=== PATIENT | male | born 1945 | race Caucasian/White ===

== ENCOUNTER 2019-10-21 15:05 | Emergency (ER) | payer MEDICARE, BC, SELFPAY ==
[2019-10-21] VITALS (40 sets, daily range): BP systolic 98–144; BP diastolic 52–66; PULSE 50–66; RESP 7–23; TEMP 36.6; O2SAT 94–99
--- NOTE | 2019-10-21 15:06 | ED.GENADUL_ITS ---
Discharge Plan Disposition Patient Disposition: HOME Condition: Stable Discharge Details Chief Complaint: Chest Pain Clinical Impression: Chest tightness Primary Care Provider: GANGA HAQ ED Provider: Oscar Alegre Home Meds and New Rx's Prescriptions: No Action losartan 100 mg tablet 100 mg PO DAILY RF: 0 atenolol 50 mg tablet 50 mg PO BID RF: 0 rosuvastatin 10 mg tablet 10 mg PO DAILY RF: 0 Discharge Instructions Instructions: Chest Pain (ED) Additional Instructions: At this time your work-up is unremarkable for emergent process and you have remained asymptomatic during your ER visit. At this time you will be discharged home however have been encouraged to return to the ER for new or evolving symptoms, otherwise contact your primary care provider on Wednesday for prompt outpatient reevaluation. Discharge Data Discharge Date/Time-TO BE ENTERED AT DEPARTURE: 10/21/19 19:40 Medical Decision Making <JESSICA Celeste - Last Filed: 10/22/19 07:54> Patient is a pleasant 74-year-old male presenting today after having a 15-minute episode of chest tightness. He states that he and his and walked approximately half a mile prior to onset of symptoms. States that he was wear ing a cloth mask made by his to help prevent COVID 19. Patient reports that this week he has been rather sedentary compared to his typical but normally he goes to the gym multiple times a day and rides a bike. He has never had an episode like this when physically exerting himself historically. States his past medical history is pertinent for hypertension but otherwise, healthy individual. He is on atenolol which he did take this morning. He denies any chest pain. No shortness of breath. Denies any radiating pain, back pain. Did not have any palpitations. No known personal cardiac history. States that symptoms resolved 15 minutes after onset while sedentary in the car. On exam, patient is resting comfortably. He is noted be slightly hypertensive at 144/63. His lungs are clear. Normal cardiac exam. He does have lower extremity edema the patient reports that this is chronic and unchanged. No calf tenderness. EKG was obtained. This is reviewed by Dr. Leung. Patient is in a normal sinus rhythm with a rate of 60. Of note, the initial EKG did show abnormalities this appeared more motion artifact. The repeat does not show any evidence of ST elevation or other acute ischemic changes. At the end of my shift, care was transitioned to Oscar Alegre PA-C with labs and imaging pending. <JESSICA Farnsworth - Last Filed: 10/21/19 19:32> This is a pleasant 74-year-old gentleman who was signed out to me at shift change. He had left sided chest heaviness after putting a respiratory mask on and walking. Cardiac work-up in process. Upon shift change patient is resting comfortably in the room a, asymptomatic. Awaiting laboratory values and x-ray. Laboratory values are essentially unremarkable, initial troponin is less than 0.05 X-ray of his chest was read by virtual radiology as mild opacities in the medial aspect of both bases which may resent atelectasis or pneumonia. Patient is without cough, hypoxia, or elevated white count. Clinically very low suspicion of pneumonia. Patient remains asymptomatic. Upon my reevaluation he is resting comfortably. We discussed his initial benign work-up. We discussed a 3-hour repeat troponin and observation for a rapid cardiac rule out. Patient is agreeable to this plan. Repeat troponin is 0.05, still below our critical value. Patient remains asymptomatic. Repeat troponin performed at 1911 reviewed and interpreted by Dr. Leung. Sinus rhythm, ventricular rate of 62. Poor R wave progression. No acute ST elevation or depression segments. No dynamic changes when compared to initial EKG At this time patient has been observed in the ER for over 3 hours and has remained asymptomatic. Work-up in the ER does not reveal any emergent process. We discussed her options, patient is comfortable being discharged home. He believes his symptoms were secondary to wearing the mask, feeling claustrophobic and becoming anxious. We discussed the importance of returning to the ER for new or evolving symptoms, otherwise contacting his primary care provider on Wednesday for prompt outpatient reevaluation. Patient is agreeable to this plan and has no additional questions or concerns Imaging Data Radiologic Study: Attestation: I personally reviewed and interpreted this imaging study as follows: Imaging: X-Ray My impression: I initially read as negative, virtual radiology read as mild opacities in the medial aspect of both bases, may represent atelectasis or pneumonia. Very small suspicion for pneumonia given his clinical presentation. Lab Data Lab results reviewed: Yes I reviewed the patient's lab results. Lab results narrative: Laboratory Tests Range/Units 10/21/19 10/21/19 10/21/19 15:20 15:20 15:20 WBC (4.4-10.8) k/cumm 8.87 RBC (4.50-6.00) m/cumm 5.43 Hgb (13.5-17.5) g/dL 16.7 Hct (40.0-50.0) % 48.8 MCV (80-95) fL 89.9 MCH (27.0-33.0) pg 30.8 MCHC (32.0-36.0) g/dL 34.2 RDW (11.8-14.1) % 13.2 Plt Count (130-400) x1000/uL 254 MPV (8.0-11.0) fL 8.9 Immature Gran % % 0.3 Neutrophils % 63.9 Lymphocytes % 23.1 Monocytes % 11.0 Eosinophils % 1.4 Basophils % 0.3 Absolute Neutrophils (1.2-6.7) k/cumm 5.66 Absolute Lymphocytes (1.2-3.4) k/cumm 2.05 Absolute Monocytes (0.11-0.7) k/cumm 0.98 H Absolute Eosinophils (0.0-0.7) k/cumm 0.12 Absolute Basophils (0.0-0.2) k/cumm 0.03 PT (9.3-11.0) sec 11.0 INR (0.9-1.1) 1.1 APTT (21.0-31.4) sec 23.6 Sodium (136-145) mmol/L 141 Potassium (3.5-5.1) mmol/L 3.9 Chloride (98-107) mmol/L 103 Carbon Dioxide (21.0-32.0) mmol/L 26.5 Anion Gap (3-11) mmol/L 11.5 H BUN (7-18) mg/dL 20 H Creatinine (0.70-1.30) mg/dL 1.14 Estimated GFR/1.73 m2 (mL/min/1.73m2) >= 60.00 Glucose (74-106) mg/dL 114 H Calcium (8.5-10.1) mg/dL 8.7 Magnesium (1.8-2.4) mg/dL 1.8 Total Bilirubin (0.2-1.0) mg/dL 0.5 AST (15-37) U/L 32 ALT (16-63) U/L 47 Alkaline Phosphatase (46-116) U/L 99 Troponin I (<0.06) ng/Ml < 0.05 NT-Pro-B Natriuret Pep (<300) pg/mL 77 Total Protein (6.4-8.2) g/dL 7.3 Albumin (3.4-5.0) g/dL 3.6 Range/Units 10/21/19 18:07 WBC (4.4-10.8) k/cumm RBC (4.50-6.00) m/cumm Hgb (13.5-17.5) g/dL Hct (40.0-50.0) % MCV (80-95) fL MCH (27.0-33.0) pg MCHC (32.0-36.0) g/dL RDW (11.8-14.1) % Plt Count (130-400) x1000/uL MPV (8.0-11.0) fL Immature Gran % % Neutrophils % Lymphocytes % Monocytes % Eosinophils % Basophils % Absolute Neutrophils (1.2-6.7) k/cumm Absolute Lymphocytes (1.2-3.4) k/cumm Absolute Monocytes (0.11-0.7) k/cumm Absolute Eosinophils (0.0-0.7) k/cumm Absolute Basophils (0.0-0.2) k/cumm PT (9.3-11.0) sec INR (0.9-1.1) APTT (21.0-31.4) sec Sodium (136-145) mmol/L Potassium (3.5-5.1) mmol/L Chloride (98-107) mmol/L Carbon Dioxide (21.0-32.0) mmol/L Anion Gap (3-11) mmol/L BUN (7-18) mg/dL Creatinine (0.70-1.30) mg/dL Estimated GFR/1.73 m2 (mL/min/1.73m2) Glucose (74-106) mg/dL Calcium (8.5-10.1) mg/dL Magnesium (1.8-2.4) mg/dL Total Bilirubin (0.2-1.0) mg/dL AST (15-37) U/L ALT (16-63) U/L Alkaline Phosphatase (46-116) U/L Troponin I (<0.06) ng/Ml 0.05 NT-Pro-B Natriuret Pep (<300) pg/mL Total Protein (6.4-8.2) g/dL Albumin (3.4-5.0) g/dL HPI <JESSICA Celeste - Last Filed: 10/22/19 07:54> General Mode of arrival: ambulatory . Date/Time Provider Initiated Documentation: 10/21/19 15:06 . Limitations to Documentation: no limitations . Information obtained by: patient and RN notes reviewed . History of Present Illness 74 year old M presents to the emergency department with the chief complaint of chest tightness, described as moderate, Quality is described as other (tight), and is localized to the chest. Patient reports no radiation. Patient started experiencing this minute(s) and it has been now resolved. Immobilization improves symptom(s), Movement worsens symptoms (came on when walking with mask on) . Patient notes no other symptoms.. Patient did receive the following treatments prior to arrival, none Related Data Home Medications Medication Instructions Recorded Confirmed atenolol 50 mg PO BID 10/21/19 10/21/19 losartan 100 mg PO DAILY 10/21/19 10/21/19 rosuvastatin 10 mg PO DAILY 10/21/19 10/21/19 Allergies Allergy/AdvReac Type Severity Reaction Status Date / Time No Known Allergies Allergy Unverified 10/21/19 15:29 Review of Systems <JESSICA Celeste - Last Filed: 10/22/19 07:54> Constitutional Constitutional: Reports as per HPI, Denies chills, Denies fever(s), Denies headache(s), Denies lethargy and Denies poor appetite Eyes Eyes: Denies change in vision ENT Ears, Nose, Mouth, and Throat: Denies dizziness and Denies headache(s) Cardiovascular Cardiovascular: Reports as per HPI, Reports chest pain (chest tightness), Denies chest pain at rest, Reports chest pain with activity (came on when ambulating, now resolved after sitting x 15 min), Denies diaphoresis, Denies rapid heart rate, Reports leg edema (chronic BLE edema, no change), Denies lightheadedness, Denies radiating jaw, neck or arm pain, Denies palpitations, Denies dyspnea and Denies dyspnea on exertion Respiratory Respiratory: Reports as per HPI, Denies chest congestion, Denies cough, Denies pain on inspiration, Denies pain with cough, Denies dyspnea, Denies dyspnea on exertion and Denies wheezing Gastrointestinal Gastrointestinal: Reports as per HPI, Denies abdominal pain, Denies diarrhea, Denies nausea and Denies vomiting Genitourinary Genitourinary: Denies system reviewed and no additional complaints, except as documented (denies change in urinary habits) Musculoskeletal Musculoskeletal: Reports as per HPI and Denies back pain Integumentary/Breasts Skin/Breast: Reports as per HPI and Denies rash Neurologic Neurologic: Reports as per HPI, Denies dizziness and Denies headache(s) Endocrine Endocrine: Denies palpitations Allergic/Immunologic Allergic/Immunologic: Denies wheezing PFSH <JESSICA Celeste - Last Filed: 10/22/19 07:54> Social History Smoking/Tobacco Use Status: Former Tobacco Use Tobacco: How many years used: 3 Substance use type: does not use Do you feel safe at home: Yes Do you feel safe in your relationship?: Yes Exam <JESSICA Celeste - Last Filed: 10/22/19 07:54> Const General: cooperative, healthy appearing, comfortable, no acute distress and well developed Nutritional Appearance: well nourished and overweight Orientation: alert, awake and oriented x3 HENMT Head: normal to inspection Ears: hearing grossly normal bilaterally Mouth: mucous membranes dry (appears dry) Chest Chest: normal inspection of the chest, normal palpation of entire chest wall and no crepitus Resp Effort & Inspection: normal respiratory effort, able to speak in complete sentences and no respiratory distress Auscultation: clear to auscultation bilaterally, no rales, no rhonchi and no wheezes Cardio Rate: regular rate Rhythm: regular rhythm Heart Sounds: S1 normal and S2 normal GI Inspection: normal to inspection, no edema and non-distended Palpation: soft, no hepatosplenomegaly, not firm, no guarding, not rigid and nontender Auscultation: normal bowel sounds Back/Spine/Pelvis Back: no CVA tenderness Thoracic/Lumbar Spine: thoracic and lumbar spine normal to inspection Skin General skin exam: no rashes or lesions noted Trauma: no lacerations or abrasions Neuro General: patient alert, patient awake and patient oriented x3 Cognition: normal cognition Speech: speech normal Gait: normal gait Extrem General: normal to inspection, capillary refill normal, no calf tenderness, normal gait and edema Laterality: bilateral (1+ edema BLE, no calf tenderness) Psych Appearance: grossly normal and well kempt Mental Status: mental status grossly normal Speech and Movement: speech and movement normal <JESSICA Farnsworth - Last Filed: 10/21/19 19:32> Const General: cooperative, healthy appearing, comfortable and no acute distress Orientation: alert and awake HENMT Head: normal to inspection, normocephalic and atraumatic Mouth: moist mucous membranes Eyes Conjunctivae: conjunctivae normal Neck Neck: normal visual inspection, trachea midline and supple Resp Effort & Inspection: normal respiratory effort and able to speak in complete sentences Auscultation: clear to auscultation bilaterally Cardio Rate: regular rate Rhythm: regular rhythm Skin General skin exam: no rashes or lesions noted Neuro General: patient alert, patient awake, moves all extremities and no focal motor deficits Sensory Exam: no sensory deficits noted Psych Appearance: grossly normal Mental Status: mental status grossly normal Sign Out <JESSICA Celeste - Last Filed: 10/22/19 07:54> Sign Out Data: Sign Out Comment: Care transition to Mohsen Alegre PA-C with labs and imaging pending. Last updated by Eun Wheeler PA at 10/21/19 15:45
--- NOTE | 2019-10-21 15:15 | DI.RAD_ITS ---
EXAM: XR CHEST 2V PA LATERAL CLINICAL HISTORY: chest tightness with exertion TECHNIQUE: 2D digital imaging was performed. COMPARISON: No exams were available for comparison FINDINGS: MEDIASTINUM: Normal. HEART: Normal. PULMONARY VASCULATURE: Normal. LUNGS: Clear. PLEURAL SPACE: No pleural effusion or pneumothorax. BONE:Age appropriate degenerative changes. OTHER FINDINGS:Normal. IMPRESSION: No acute pulmonary findings. DATA REPOSITORY: RADIATION DOSE DELIVERED:
[2019-10-21 15:29] LABS: Abs Immature Grans 0.03 k/cumm (0.0-0.09); Absolute Basophil Count 0.03 k/cumm (0.0-0.2); Absolute Eosinophil Count 0.12 k/cumm (0.0-0.7); Absolute Lymphocyte Count 2.05 k/cumm (1.2-3.4); Absolute Monocyte Count 0.98 k/cumm (0.11-0.7); Absolute Neutrophil Count 5.66 k/cumm (1.2-6.7); Basophils % 0.3; Eosinophils % 1.4; HCT 48.8 % (40.0-50.0); HGB 16.7 g/dL (13.5-17.5); Immature Grans % 0.3 %; Lymphocytes % 23.1; Mean Corp. HGB Concentration 34.2 g/dL (32.0-36.0); Mean Corpuscular Hemoglobin 30.8 pg (27.0-33.0); Mean Corpuscular Volume 89.9 fL (80-95); Mean Platelet Volume 8.9 fL (8.0-11.0); Neutrophils % 63.9; Platelet Count 254 x1000/uL (130-400); RBC 5.43 m/cumm (4.50-6.00); RBC Distribution Width 13.2 % (11.8-14.1); White Blood Cell Count 8.87 k/cumm (4.4-10.8)
[2019-10-21] MEDS: Aspirin 81 MG CHEW 324 MG CH (15:29)
[2019-10-21 15:46] LABS: INR 1.1 (0.9-1.1); PTT Activated 23.6 sec (21.0-31.4)
[2019-10-21 15:54] LABS: ALT 47 U/L (16-63); AST 32 U/L (15-37); Albumin 3.6 g/dL (3.4-5.0); Alkaline Phosphatase 99 U/L (46-116); Anion Gap 11.5 mmol/L (3-11); BUN 20 mg/dL (7-18); Bilirubin, Total 0.5 mg/dL (0.2-1.0); CO2 26.5 mmol/L (21.0-32.0); CREATININE 1.14 mg/dL (0.70-1.30); Calcium 8.7 mg/dL (8.5-10.1); Chloride 103 mmol/L (98-107); Glucose 114 mg/dL (74-106); Magnesium 1.8 mg/dL (1.8-2.4); NT-proBNP 77 pg/mL (<300); Potassium 3.9 mmol/L (3.5-5.1); Sodium 141 mmol/L (136-145); Total Protein 7.3 g/dL (6.4-8.2)
[2019-10-21 15:56] LABS: Troponin I < 0.05 ng/Ml (<0.06)
--- NOTE | 2019-10-21 16:30 | DI.VRAD_ITS ---
PROCEDURE INFORMATION: Exam: XR Chest, 2 Views Exam date and time: 10/21/2019 4:19 PM Age: 74 years old Clinical indication: Other: Chest tightness, w/ exertion TECHNIQUE: Imaging protocol: XR of the chest Views: 2 views. COMPARISON: No relevant prior studies available. FINDINGS: Lungs: Mild opacities in the medial aspect of the both bases may represent atelectasis or pneumonia. Pleural space: Unremarkable. No pleural effusion. No pneumothorax. Heart/Mediastinum: Unremarkable. No cardiomegaly. Bones/joints: Unremarkable. IMPRESSION: Mild opacities in the medial aspect of the both bases may represent atelectasis or pneumonia. Dictated and Authenticated by: Adonis Elliott MD. Ordering:LATASHA Haq MD
[2019-10-21 18:30] LABS: Troponin I 0.05 ng/Ml (<0.06)
== END 2019-10-21 19:40 | disposition home or self-care (01) ==
PROVIDERS: Physician Assistant; Emergency Provider Physician Assistant; PCP Registered Nurse
DX: R07.89 Other chest pain (principal); I10 Essential (primary) hypertension
CPT/HCPCS: 80053; 93005; 99285; 71046; 83735; 83880; 84484; 85025; 85610; 85730; 93010; 99284

== ENCOUNTER → 2020-05-20 10:59 | Outpatient (BNVA) | payer MEDICARE, BC, SELFPAY | PROVIDERS: PCP Registered Nurse; Referring Provider Registered Nurse; Visit Provider Surgery | DX: R19.5 Other fecal abnormalities (principal); I10 Essential (primary) hypertension | CPT/HCPCS: 99202; 99213 ==

== ENCOUNTER 2020-06-04 07:35 | Outpatient (CLI) | payer MEDICARE, BC, SELFPAY ==
[2020-06-05 17:52] LABS: SARS-CoV-2 RNA Not Detected (NotDetected); SARS-CoV-2 RNA Source Nasal/Nares
== END 2020-06-04 07:55 ==
PROVIDERS: PCP Registered Nurse; Visit Provider Surgery
DX: Z01.818 Encounter for other preprocedural examination (principal)
CPT/HCPCS: U0003

== ENCOUNTER 2020-06-07 07:44 | Day surgery (SDC) | payer MEDICARE, BC, SELFPAY ==
[2020-06-07 07:55] VITALS: BP 154/77; PULSE 58; RESP 16; TEMP 36.2; O2SAT 99
[2020-06-07] MEDS: Lactated Ringers 1,000 ML 80 ML IV (08:15)
--- NOTE | 2020-06-07 08:54 | W.PM.DSUDISC ---
Discharge Plan Disposition Patient Disposition: HOME Condition: Good Discharge Details Reason For Visit: Colonoscopy Attending Provider: Susie Hendrix Primary Care Provider: GANGA HAQ Home Meds and New Rx's Prescriptions: Continued aspirin [Adult Aspirin Regimen] 81 mg tablet,delayed release (DR/EC) 81 mg PO DAILY RF: 0 cholecalciferol (vitamin D3) 25 mcg (1,000 unit) capsule 25 mcg PO DAILY RF: 0 ascorbate calcium (vitamin C) 500 mg tablet 500 mg PO DAILY RF: 0 losartan 100 mg tablet 100 mg PO DAILY RF: 0 atenolol 50 mg tablet 50 mg PO BID RF: 0 rosuvastatin 10 mg tablet 10 mg PO DAILY RF: 0 Discontinued bisacodyl [Dulcolax (bisacodyl)] 5 mg tablet,delayed release (DR/EC) 5 mg PO ONCE Qty: 4 RF: 0 polyethylene glycol 3350 17 gram/dose powder 17 g PO ONCE Qty: 238 RF: 0 Discharge Instructions Additional Instructions: Findings: Four small polyps were removed. My office will contact you with biopsy results. Follow up: Plan for a colonoscopy in 3-5 years depending on biopsy results. Please call if you develop: fevers >101.5 Nausea or Vomiting Abdominal pain that is not transient DAY SURGERY UNIT POST COLONOSCOPY INSTRUCTIONS 1. Because there will be medication in your system for the next 24 hours, you may feel a little sleepy. Your coordination will be affected. Therefore: a. Do not drive or operate dangerous equipment for 24 hours. b. Do not drink alcohol beverages for 24 hours (not even beer). c. Plan to go home and rest for the day. 2. Generally there are no restrictions on your activity after a day or so has gone by, but you may feel a bit fatigued for a few days. 3 After you arrive home you may have a light meal and return to a normal diet as you can tolerate it without feeling sick to your stomach. 4. After surgery, you may feel pain or discomfort. This should be only transient, but if it persists please contact your doctor. 5. If there are any questions regarding the findings of your procedure, please feel free to contact your doctor. 6. If you are unable to contact your doctor with a problem, contact the hospital at [phone]. 7. Continue all your regular medications unless directed otherwise. I understand the above instructions and have no questions. Signature of Patient or Responsible Adult Escort Date/Time Name of Responsible Adult Escort Signature of Nurse Date/Time Activity:: Activity as Tolerated Diet:: As Tolerated Discharge Orders Discharge Orders: Discharge Order (Routine); Ordered 06/07/20 Ordered By: Susie Hendrix DS: Diagnosis Discharge Diagnosis (1) Colon polyps: Status: Acute (2) Diverticulosis: Status: Acute
--- NOTE | 2020-06-07 08:55 | W.COLOREPORT ---
Date of service: 06/07/20 Time of Service: 10:46 Colonoscopy Report Date of procedure: 06/07/20 Pre-op diagnosis general: Positive Cologuard Post-op diagnosis procedure note: other (Colon polyps, diverticulosis) Procedure: Colonoscopy with cold forceps polypectomy Surgeon: Susie Hendrix Anesthesia proc note operative: MAC Indications: This 75 year man presents for evaluation of a positive Cologuard test. He has no symptoms or FH colon cancer. No prior colonoscopy. Procedure Description: The patient was placed in the left Sánchez position. Propofol was titrated to sedation. Digital rectal examination revealed no abnormalities. The scope was advanced to the cecum without difficulty. The ileocecal valve and appendiceal orifice were clearly identified. The prep was good. The scope was slowly withdrawn over the course of greater than 6 minutes with no abnormalities seen in the ascending colon. At the hepatic flexure, two small polyps were removed with the cold forceps and sent together in the same container. A diminuitive polyp was removed from the transverse colon. The descending and sigmoid colon were normal. A diminuitive polyp was removed from the rectum. The patient tolerated the procedure well and was stable to recovery. Plan for colonoscopy in 3-5 years depending on biopsy results.
--- NOTE | 2020-06-07 10:13 | BOWEL_PTH ---
PATIENT: Gregory Kent LOC: [facility] U#:[id number] AGE/SX: 75/M ROOM: RE06/07/[address]: Susie Hendrix MD : [id number] BED: DIS: 06/07/2020 SPEC #: [id number] RECD: 06/07/20 12:31 STATUS: SAMARA REQ #: [id number] HONORIO: 06/07/20 10:[address]: Susie Hendrix DEPT: Surgical Specimen RECD BY: Radha Stewart ENTERED: 06/07/20 12:34 SP TYPE: Bowel OTHR DR: Riddhi Sorenson Tissues: 1 - BIOPSY BOWEL 2 - BIOPSY BOWEL 3 - BIOPSY BOWEL Procedures: GROSS AND MICRO LEVEL 4 Comments: [id number]
[2020-06-07 11:00] VITALS: BP 130/62; PULSE 51; RESP 16; TEMP 36.2; O2SAT 99
== END 2020-06-07 11:30 | disposition home or self-care (01) ==
PROVIDERS: PCP Registered Nurse; Visit Provider Surgery
PROC: 0DJD8ZZ Inspection of Lower Intestinal Tract, Via Natural or Artificial Opening Endoscopic (ICD-10-PCS; CPT 45378; principal; 2020-06-07 09:45)
DX: Z12.11 Encounter for screening for malignant neoplasm of colon (principal); D12.3 Benign neoplasm of transverse colon; K62.1 Rectal polyp; R19.5 Other fecal abnormalities; K57.30 Diverticulosis of large intestine without perforation or abscess without bleeding
CPT/HCPCS: 45380; 88305; J2001

== ENCOUNTER 2020-12-19 15:54 | Outpatient (REF) | payer MEDICARE, BC, SELFPAY ==
[2020-12-19 20:47] LABS: Hemoglobin A1C 5.5 % (<5.7)
[2020-12-19 20:53] LABS: ALT 38 U/L (16-63); AST 25 U/L (15-37); Albumin 3.4 g/dL (3.4-5.0); Alkaline Phosphatase 91 U/L (46-116); Anion Gap 6.1 mmol/L (3-11); BUN 23 mg/dL (7-18); Bilirubin, Total 0.5 mg/dL (0.2-1.0); CO2 29.9 mmol/L (21.0-32.0); CREATININE 1.2 mg/dL (0.70-1.30); Calcium 8.7 mg/dL (8.5-10.1); Calculated LDL 80 mg/dL (<100); Chloride 109 mmol/L (98-107); Cholesterol 180 mg/dL (<200); Estimated GFR 59.35 (mL/min/1.73m2); Glucose 110 mg/dL (74-106); HDL Cholesterol 38 mg/dL (40-60); Potassium 4.2 mmol/L (3.5-5.1); Sodium 145 mmol/L (136-145); Total Protein 6.3 g/dL (6.4-8.2); Triglyceride 312 mg/dL (<150)
== END 2020-12-19 15:55 | disposition home or self-care (01) ==
LOC: NCHCN 15:54
PROVIDERS: PCP Registered Nurse; Visit Provider Registered Nurse
DX: I10 Essential (primary) hypertension (principal); E78.00 Pure hypercholesterolemia, unspecified; R73.09 Other abnormal glucose
CPT/HCPCS: 80053; 80061; 83036

== ENCOUNTER 2021-11-12 18:52 | Outpatient (REF) | payer MEDICARE, BC, SELFPAY ==
[2021-11-12 15:29] LABS: ALT 56 U/L (16-63); AST 31 U/L (15-37); Albumin 3.6 g/dL (3.4-5.0); Alkaline Phosphatase 100 U/L (46-116); Anion Gap 5.8 mmol/L (3-11); BUN 18 mg/dL (7-18); Bilirubin, Total 0.6 mg/dL (0.2-1.0); CO2 30.2 mmol/L (21.0-32.0); CREATININE 1.3 mg/dL (0.70-1.30); Calcium 8.6 mg/dL (8.5-10.1); Chloride 106 mmol/L (98-107); Estimated GFR 53.96 (mL/min/1.73m2); Glucose 107 mg/dL (74-106); Potassium 4.3 mmol/L (3.5-5.1); Sodium 142 mmol/L (136-145); Total Protein 6.7 g/dL (6.4-8.2)
[2021-11-13 09:48] LABS: Hepatitis C Ab w Rflx HCV PCR Negative (Negative)
== END 2021-11-12 18:53 | disposition home or self-care (01) ==
LOC: NCHCN 18:52
PROVIDERS: PCP Registered Nurse; Visit Provider Registered Nurse
DX: I10 Essential (primary) hypertension (principal); K76.0 Fatty (change of) liver, not elsewhere classified; Z11.59 Encounter for screening for other viral diseases
CPT/HCPCS: 80053; 86803

== ENCOUNTER 2021-11-24 10:09 | Day surgery (SDC) | payer MEDICARE, BC, SELFPAY ==
[2021-11-24] MEDS: Tropicam./Phenyleph. (1/2.5%) 5 ML BTL OD ×3 (10:46→10:57)
[2021-11-24 10:47] VITALS: BP 149/68; PULSE 54; RESP 16; TEMP 36.6; O2SAT 98
--- NOTE | 2021-11-24 10:49 | W.ANESPRE ---
General Info Date of Service Date Performed: 11/24/21 Height: 6 ft 1 in Weight: 116.573 kg Body Mass Index (BMI): 33.9 Surgical Procedure: Operation Date: 11/24/21 12:10 Proposed Procedure Side Surgeon p Cataract Extraction with IOL Implant Right Darrel Knutson MD Meds Allergies and Home Medications Allergies Allergy/AdvReac Type Severity Reaction Status Date / Time No Known Allergies Allergy Unverified 11/24/21 10:34 Home Medication Medication Instructions Recorded atenolol 50 mg tablet 50 mg PO BID 10/21/19 losartan 100 mg tablet 100 mg PO HS 10/21/19 rosuvastatin 10 mg tablet 10 mg PO DAILY 10/21/19 ascorbate calcium (vitamin C) 500 500 mg PO DAILY 05/20/20 mg tablet aspirin 81 mg tablet,delayed 81 mg PO DAILY 05/20/20 release (Adult Aspirin Regimen) cholecalciferol (vitamin D3) 25 25 mcg PO DAILY 05/20/20 mcg (1,000 unit) capsule omeprazole 20 mg capsule,delayed 20 mg PO DAILY 11/20/21 release diphenhydramine HCl 25 mg tablet 25 mg PO TID PRN 11/24/21 Current Visit Medications: Current Medications Generic Name Dose Route Start Last Admin Trade Name Freq PRN Reason Stop Dose Admin Acetaminophen 1,000 mg 11/24/21 06:00 Acetaminophen 500 Mg Tab PO Q4H PRN PRN Miscellaneous Medication 0 ml 11/24/21 06:00 Prednisolone 1%, Moxifloxacin 0.5%, Nepafenac 0.1% 5ml Btl OD DIRECTED [facility] Miscellaneous Medication 0 ml 11/24/21 06:00 11/24/21 10:46 Tropicam./Phenyleph. (1/2.5%) 5 Ml Btl OD 1 drp DIRECTED DIONE Administration Tetracaine HCl 0 ml 11/24/21 06:00 Tetracaine 0.5% 4 Ml Btl OD DIRECTED DIONE PFSH Active Problems Active Problems: Problem Status Onset Code Heme positive stool R19.5 Hypercholesterolemia E78.00 Hypertension I10 Positive colorectal cancer screening using Cologuard test R19.5 Colon polyps K63.5 Diverticulosis K57.90 Serrated adenoma of colon D12.6 Tubular adenoma of colon D12.6 Hyperplastic colon polyp K63.5 Nuclear sclerotic cataract of right eye H25.11 Posterior subcapsular age-related cataract, right eye H25.041 Medical History Medical History (Updated 11/24/21 @ 10:36 by Valorie Lafleur) Hx of chest pain Pt. states came to ER 10/2019 for chest tightness, all tests came back normal, had full work up through [facility]. Pt states he wasn't told to F/U further with cardiology, just his PCP. Pt. stated that it was heart burn related and pain goes away when he takes an antiacid. Hx of gastroesophageal reflux (GERD) Surgical History Surgical History Hx of appendectomy Status post total hip replacement, bilateral Tobacco Smoking/Tobacco Use Status: Former Tobacco Use Alcohol Alcohol Intake: current Alcohol intake frequency: a few times a month Substance Use Substance use: Never Substance use type: does not use Vital Signs and Lab Results Lab Results Blood Type / Crossmatch: No Data to Display Complete Blood Count: No Data to Display Complete Metabolic Panel: Sodium Level 142 mmol/L (136-145) 11/12/21 09:10 11/12/21 Potassium Level 4.3 mmol/L (3.5-5.1) 11/12/21 09:10 11/12/21 Chloride Level 106 mmol/L (98-107) 11/12/21 09:10 11/12/21 Carbon Dioxide Level 30.2 mmol/L (21.0-32.0) 11/12/21 09:10 11/12/21 Blood Urea Nitrogen 18 mg/dL (7-18) 11/12/21 09:10 11/12/21 Creatinine 1.3 mg/dL (0.70-1.30) 11/12/21 09:10 11/12/21 Estimated GFR/1.73 m2 53.96 (mL/min/1.73m2) 11/12/21 09:10 11/12/21 Calcium Level 8.6 mg/dL (8.5-10.1) 11/12/21 09:10 11/12/21 Albumin 3.6 g/dL (3.4-5.0) 11/12/21 09:10 11/12/21 Glucose Level 107 mg/dL (74-106) H 11/12/21 09:10 11/12/21 Liver Function Panel: Alanine Aminotransferase (ALT/SGPT) 56 U/L (16-63) 11/12/21 09:10 11/12/21 Aspartate Amino Transf (AST/SGOT) 31 U/L (15-37) 11/12/21 09:10 11/12/21 Coagulation Panel: No Data to Display Cardiac Panel: No Data to Display Arterial Blood Gas: No Data to Display Venous Blood Gas: No Data to Display Pancreas Panel: No Data to Display Thyroid Panel: No Data to Display Infectious Disease: Hepatitis C Antibody Negative (Negative) 11/12/21 09:10 11/12/21 Blood Cultures: No Data to Display Toxicology Panel: No Data to Display Anesthesia Assessment and Plan Anesthesia History Personal History: No History of Anesthesia Complications Family History: No Family History of Anesthesia Complications Exercise Tolerance Exercise Tolerance: Metabolic Equivalents>4 Pertinent Negatives Pertinent Negatives: No Major Cardiovascular Symptoms or Complaints and No Major Pulmonary Symptoms or Complaints Cardiac & Pulmonary Exam Cardiac Exam: Normal S1/S2 Heart Sounds Pulmonary Exam: Clear Bilateral Breath Sounds Implantable Cardiac Device Does patient have a Pacemaker or an ICD?: No Airway Exam Known Difficult Airway: No Mallampati Class: 2 Mouth Opening: Normal (> 3cm) Thyromental Distance: Greater than 3 cm Neck Range of Motion: Full ROM Neck Circumference: Normal Teeth Condition: Normal Dentition ASA Classification ASA Score: ASA 2 Emergency Case?: No NPO Status NPO Status: NPO Clears >2 hours, Solids >8 hours Anesthesia Plan Resuscitation Status: Full Code Anesthesia Technique: MAC Anesthesia Airway Planned: Natural Airway Monitors Used: Standard Monitors
[2021-11-24 10:51] VITALS: BMI 33.9
[2021-11-24] MEDS: Povidone-Iodine Ophth 30 ML BTL (11:13)
[2021-11-24] MEDS: Tetracaine 0.5% 4 ML BTL OD (11:13)
[2021-11-24] MEDS: Lidocaine 2% Jelly 6 ML SYR (11:15)
[2021-11-24] MEDS: Duovisc Viscoelastic System EACH 1 EACH (11:21)
[2021-11-24] MEDS: Balanced Salt Soln.-PLUS 500 ML BAG (11:21)
[2021-11-24 11:41] VITALS: BP 144/63; PULSE 57; RESP 16; TEMP 36.5; O2SAT 99
--- NOTE | 2021-11-24 11:42 | W.PM.DSUDISC ---
Discharge Plan Disposition Patient Disposition: HOME Condition: Good Discharge Details Attending Provider: Darrel Knutson Primary Care Provider: Riddhi Sorenson Home Meds and New Rx's Prescriptions: No Action aspirin [Adult Aspirin Regimen] 81 mg tablet,delayed release (DR/EC) 81 mg PO DAILY 0RF cholecalciferol (vitamin D3) 25 mcg (1,000 unit) capsule 25 mcg PO DAILY 0RF ascorbate calcium (vitamin C) 500 mg tablet 500 mg PO DAILY 0RF Label Comments: 11/24 pt reports its been a long while omeprazole 20 mg capsule,delayed release(DR/EC) 20 mg PO DAILY 0RF diphenhydramine HCl 25 mg Tablet 25 mg PO TID PRN0RF Label Comments: 11/24 Patient reports OTC generic benadryl losartan 100 mg tablet 100 mg PO HS 0RF Rx Instructions: at bedtime atenolol 50 mg tablet 50 mg PO BID 0RF rosuvastatin 10 mg tablet 10 mg PO DAILY 0RF Label Comments: TAKE 1 TABLET BY MOUTH ONCE DAILY. Discharge Instructions Stand Alone Forms: Post-op Topical Cataract, Inge Niño (DSU) Discharge Orders Discharge Orders: Discharge Order (Routine); Ordered 11/24/21 Ordered By: Darrel Knutson DS: Diagnosis Discharge Diagnosis (1) Nuclear sclerotic cataract of right eye: Status: Resolved (2) Posterior subcapsular age-related cataract, right eye: Status: Resolved
--- NOTE | 2021-11-24 11:43 | W.PM.OP ---
Date of service: 11/24/21 Time of Service: 11:43 Operative Note Operative Note DATE OF PROCEDURE: 11/24/21 PRE-OP DIAGNOSIS: Nuclear/posterior subcapsular cataract, right eye POST-OP DIAGNOSIS: same PROCEDURE: Cataract extraction using phacoemulsification with intraocular lens implant, right eye SURGEON: Darrel Knutson ANESTHESIA TYPE: Local By Surgeon and MAC Refer to Anesthesia Record ESTIMATED BLOOD LOSS: 0 PATHOLOGY: none sent COMPLICATIONS: None Patient was transported to: same day Patient's condition: stable Implants: Ghulam & Ghulam/PAWEL Tecnis [id number] Indications: Progressive visual loss due to cataract, right eye Procedure Description: CATARACT SURGERY OPERATIVE REPORT PREOPERATIVE DIAGNOSIS: 1. Nuclear/posterior subcapsular cataract, right eye POSTOPERATIVE DIAGNOSIS: Same OPERATION: 1. Cataract extraction using phacoemulsification with posterior chamber intraocular lens implant, right eye. IOL: IOL Barge Pilot/Model: Ghulam & Ghulam / PAWEL Tecnis [id number] IOL Power: + 20.5 diopters IOL Serial Number: [id number] Optic Diameter: 6.0mm Haptic/Overall Diameter: 13.0mm PHACO INFO: Anil Concepta Diagnosticsurion Vision System with OZil and Active Fluidics Cumulative Dispersed Energy (CDE): 9.10 seconds SURGEON: Darrel Knutson MD, GEOFFREY ANESTHESIA: Monitored Anesthesia Care (MAC), with local sub-tenon's anesthetic infiltration COMPLICATIONS: None SPECIMENS: None INDICATIONS FOR PROCEDURE: The patient is a 76-year-old male with history of diminished visual acuity in his right eye secondary to the development of nuclear/posterior subcapsular cataract. He was significantly symptomatic that he desired cataract surgery and attempt to improve and maximize his vision. PROCEDURE: The correct surgical eye was identified and marked as the right eye and the pupil was dilated in the preoperative area using mydriatics and cycloplegics. The dilated pupil size was 5.0 mm. He elected to proceed without oral sedation. The patient was brought to the operating room where cardiopulmonary monitoring was instituted and surgical time-out was performed, confirming the correct operative eye and IOL power. Topical anesthesia was administered and ophthalmic povidone-iodine 5% was instilled into the conjunctival fornices. Lidocaine gel was applied to the cornea and the karena-ocular area was prepped with Betadine 10% solution and draped in the usual sterile fashion for intraocular surgery, including an aperture drape. A Tegaderm transparent film dressing was cut in half and used to cover the lashes and lid margins. Care was taken to sequester the lashes and lid margins under the Tegaderm dressing. A lid speculum was placed between the lids of the operative eye and the Anil LuxOR Revalia operating microscope was maneuvered into position. Francheska scissors were then used to make a conjunctival buttonhole approximately 6mm posterior to the limbus in the inferonasal quadrant. Blunt dissection was carried out to expose bare sclera, and a blunt-tipped sub-tenon?s anesthesia cannula was introduced and passed posteriorly along the globe where non-preserved plain lidocaine was injected into posterior sub-Tenon?s space. A sideport knife was used to make a paracentesis port inferotemporally. Intraocular phenylephrine/lidocaine was injected into the anterior chamber. The anterior chamber was filled with viscoelastic. A 2.4mm keratome knife was used to construct a 2-plane near-clear corneal tunnel extending 2.0mm into clear cornea superiortemporally. A flap was raised on the anterior capsule and capsulorhexis forceps were used to complete a continuous curvilinear capsulorhexis of 5.0 mm. Balanced salt solution was then used to perform cortical cleaving hydrodissection and nuclear hydrodelineation until the lens could be freely rotated within the capsular bag. The lens nucleus was then disassembled and removed within the capsular bag and iris plane using phacoemulsification. Residual cortical material was removed using the I/A handpiece. The posterior capsule was carefully polished to remove as much residual lens epithelial cells as safely possible. The capsular bag was then inflated and the anterior chamber deepened with viscoelastic. The lens implant described above was inserted into the capsular bag using the PAWEL [place] Injector. A Kuglen hook was used to dial the IOL into position. Residual viscoelastic was then removed first from posterior to the IOL, then from the anterior chamber using the I/A handpiece. The lens implant was noted to center nicely within the capsular bag. The incisions were stromally hydrated, and the anterior chamber was reformed using BSS. Then 0.5cc of moxifloxacin 1.0mg/ml were injected into the capsular bag and anterior chamber. The incisions were checked with a Weck spear and found to be secure. Several drops of ophthalmic povidone-iodine 5% were then applied to the eye followed by two drops of Imprimis combination prednisolone/moxifloxacin/nepafenac solution. The drapes were removed and a clear plastic protective eye shield was placed over the eye. The patient was then returned to Same Day Surgery in stable condition.
--- NOTE | 2021-11-24 11:51 | W.ANESPOSTOP ---
Postoperative Evaluation Date, Time and Location Date Performed: 11/24/21 Time Performed: 11:51 Patient Location: Day Surgery Unit Vital Signs Most Recent Imported Vital Signs: Most Recent Vital Signs Temp Pulse Resp BP Pulse Ox 36.5 C 57 L 16 144/63 H 99 11/24/21 11:41 11/24/21 11:41 11/24/21 11:41 11/24/21 11:41 11/24/21 11:41 Pain Score Most Recent Pain Score: Most Recent Pain Score Pain Level 0 11/24/21 11:41 Assessment Mental Status: Awake (Alert & Oriented to Patient Baseline) Airway and Respiratory Function: Patent airway with normal (patient baseline) respiratory exam Cardiovascular Function: Hemodynamically Stable Hydration Status: Adequately Hydrated Nausea & Vomiting: No Nausea or Vomiting Pain: Pt. Denies Any Pain Peripheral Nerve Block: Patient did not receive a nerve block
== END 2021-11-24 12:09 | disposition home or self-care (01) ==
PROVIDERS: PCP Registered Nurse; Visit Provider Ophthalmology
PROC: (CPT 66984; principal; 2021-11-24 12:00)
DX: H25.041 Posterior subcapsular polar age-related cataract, right eye (principal); E78.00 Pure hypercholesterolemia, unspecified; I10 Essential (primary) hypertension
CPT/HCPCS: 66984; V2632

== ENCOUNTER 2021-12-08 12:43 | Day surgery (SDC) | payer MEDICARE, BC, SELFPAY ==
[2021-12-08 12:53] VITALS: BP 177/82; PULSE 53; RESP 16; TEMP 36.4; O2SAT 100
[2021-12-08] MEDS: Tropicam./Phenyleph. (1/2.5%) 5 ML BTL OS ×3 (13:18→13:28)
--- NOTE | 2021-12-08 14:32 | W.ANESPRE ---
General Info Date of Service Date Performed: 12/08/21 Height: 6 ft 1 in Weight: 116.7 kg Body Mass Index (BMI): 33.9 Surgical Procedure: Operation Date: 12/08/21 14:40 Proposed Procedure Side Surgeon p Cataract Extraction with IOL Implant Left Darrel Knutson MD Meds Allergies and Home Medications Allergies Allergy/AdvReac Type Severity Reaction Status Date / Time No Known Allergies Allergy Verified 12/08/21 12:59 Home Medication Medication Instructions Recorded atenolol 50 mg tablet 50 mg PO BID 10/21/19 losartan 100 mg tablet 100 mg PO HS 10/21/19 rosuvastatin 10 mg tablet 10 mg PO DAILY 10/21/19 ascorbate calcium (vitamin C) 500 500 mg PO DAILY 05/20/20 mg tablet aspirin 81 mg tablet,delayed 81 mg PO DAILY 05/20/20 release (Adult Aspirin Regimen) cholecalciferol (vitamin D3) 25 25 mcg PO DAILY 05/20/20 mcg (1,000 unit) capsule omeprazole 20 mg capsule,delayed 20 mg PO DAILY 11/20/21 release diphenhydramine HCl 25 mg tablet 25 mg PO TID PRN 11/24/21 Current Visit Medications: Current Medications Generic Name Dose Route Start Last Admin Trade Name Freq PRN Reason Stop Dose Admin Acetaminophen 1,000 mg 12/08/21 06:00 Acetaminophen 500 Mg Tab PO Q4H PRN PRN Miscellaneous Medication 0 ml 12/08/21 06:00 Prednisolone 1%, Moxifloxacin 0.5%, Nepafenac 0.1% 5ml Btl OS DIRECTED [facility] Miscellaneous Medication 0 ml 12/08/21 06:00 12/08/21 13:28 Tropicam./Phenyleph. (1/2.5%) 5 Ml Btl OS 1 drp DIRECTED DIONE Administration Tetracaine HCl 0 ml 12/08/21 06:00 Tetracaine 0.5% 4 Ml Btl OS DIRECTED DIONE PFSH Active Problems Active Problems: Problem Status Onset Code Posterior subcapsular age-related cataract of left eye H25.042 Nuclear sclerotic cataract of left eye H25.12 Heme positive stool R19.5 Hypercholesterolemia E78.00 Hypertension I10 Positive colorectal cancer screening using Cologuard test R19.5 Colon polyps K63.5 Diverticulosis K57.90 Serrated adenoma of colon D12.6 Tubular adenoma of colon D12.6 Hyperplastic colon polyp K63.5 Nuclear sclerotic cataract of right eye H25.11 Posterior subcapsular age-related cataract, right eye H25.041 Medical History Medical History Hx of chest pain Pt. states came to ER 10/2019 for chest tightness, all tests came back normal, had full work up through [facility]. Pt states he wasn't told to F/U further with cardiology, just his PCP. Pt. stated that it was heart burn related and pain goes away when he takes an antiacid. Hx of gastroesophageal reflux (GERD) Surgical History Surgical History Hx of appendectomy Status post total hip replacement, bilateral Tobacco Smoking/Tobacco Use Status: Former Tobacco Use Alcohol Alcohol Intake: former Substance Use Substance use: Never Substance use type: does not use Vital Signs and Lab Results Vital Signs Most Recent Vital Signs in EMR: Most Recent Vital Signs Temp Pulse Resp BP Pulse Ox 36.4 C L 53 L 16 177/82 H 100 12/08/21 12:53 12/08/21 12:53 12/08/21 12:53 12/08/21 12:53 12/08/21 12:53 Lab Results Blood Type / Crossmatch: No Data to Display Complete Blood Count: No Data to Display Complete Metabolic Panel: Sodium Level 142 mmol/L (136-145) 11/12/21 09:10 Potassium Level 4.3 mmol/L (3.5-5.1) 11/12/21 09:10 Chloride Level 106 mmol/L (98-107) 11/12/21 09:10 Carbon Dioxide Level 30.2 mmol/L (21.0-32.0) 11/12/21 09:10 Blood Urea Nitrogen 18 mg/dL (7-18) 11/12/21 09:10 Creatinine 1.3 mg/dL (0.70-1.30) 11/12/21 09:10 Estimated GFR/1.73 m2 53.96 (mL/min/1.73m2) 11/12/21 09:10 Calcium Level 8.6 mg/dL (8.5-10.1) 11/12/21 09:10 Albumin 3.6 g/dL (3.4-5.0) 11/12/21 09:10 Glucose Level 107 mg/dL (74-106) H 11/12/21 09:10 Liver Function Panel: Alanine Aminotransferase (ALT/SGPT) 56 U/L (16-63) 11/12/21 09:10 Aspartate Amino Transf (AST/SGOT) 31 U/L (15-37) 11/12/21 09:10 Coagulation Panel: No Data to Display Cardiac Panel: No Data to Display Arterial Blood Gas: No Data to Display Venous Blood Gas: No Data to Display Pancreas Panel: No Data to Display Thyroid Panel: No Data to Display Infectious Disease: Hepatitis C Antibody Negative (Negative) 11/12/21 09:10 Blood Cultures: No Data to Display Toxicology Panel: No Data to Display Anesthesia Assessment and Plan Anesthesia History Personal History: No History of Anesthesia Complications Family History: No Family History of Anesthesia Complications Exercise Tolerance Exercise Tolerance: Metabolic Equivalents>4 Pertinent Negatives Pertinent Negatives: No Symptoms of GERD, No Major Cardiovascular Symptoms or Complaints, No Major Pulmonary Symptoms or Complaints and No History of CVA/TIA Cardiac & Pulmonary Exam Cardiac Exam: Normal S1/S2 Heart Sounds Pulmonary Exam: Clear Bilateral Breath Sounds Implantable Cardiac Device Does patient have a Pacemaker or an ICD?: No Airway Exam Known Difficult Airway: No Mallampati Class: 2 Mouth Opening: Normal (> 3cm) Thyromental Distance: Greater than 3 cm Neck Range of Motion: Full ROM Neck Circumference: Normal Teeth Condition: Normal Dentition ASA Classification ASA Score: ASA 2 Emergency Case?: No NPO Status NPO Status: NPO Clears >2 hours, Solids >8 hours Anesthesia Plan Resuscitation Status: Full Code Anesthesia Technique: MAC Anesthesia Airway Planned: Natural Airway Monitors Used: Standard Monitors
[2021-12-08 14:48] VITALS: BMI 33.9
[2021-12-08] MEDS: Tetracaine 0.5% 4 ML BTL OS (14:50)
[2021-12-08] MEDS: Balanced Salt Soln.-PLUS 500 ML BAG (14:58)
[2021-12-08] MEDS: Lidocaine 2% Jelly 6 ML SYR (15:00)
[2021-12-08] MEDS: Povidone-Iodine Ophth 30 ML BTL (15:00)
[2021-12-08] MEDS: Duovisc Viscoelastic System EACH 1 EACH (15:00)
[2021-12-08 15:17] VITALS: BP 131/66; PULSE 59; RESP 18; TEMP 36.7; O2SAT 98
--- NOTE | 2021-12-08 15:18 | W.PM.DSUDISC ---
Discharge Plan Disposition Patient Disposition: HOME Condition: Good Discharge Details Attending Provider: Darrel Knutson Primary Care Provider: Riddhi Sorenson Home Meds and New Rx's Prescriptions: No Action aspirin [Adult Aspirin Regimen] 81 mg tablet,delayed release (DR/EC) 81 mg PO DAILY cholecalciferol (vitamin D3) 25 mcg (1,000 unit) capsule 25 mcg PO DAILY ascorbate calcium (vitamin C) 500 mg tablet 500 mg PO DAILY Label Comments: 11/24 pt reports its been a long while omeprazole 20 mg capsule,delayed release(DR/EC) 20 mg PO DAILY diphenhydramine HCl 25 mg Tablet 25 mg PO TID PRN Label Comments: 11/24 Patient reports OTC generic benadryl losartan 100 mg tablet 100 mg PO HS Rx Instructions: at bedtime atenolol 50 mg tablet 50 mg PO BID rosuvastatin 10 mg tablet 10 mg PO DAILY Label Comments: TAKE 1 TABLET BY MOUTH ONCE DAILY. Discharge Instructions Stand Alone Forms: Post-op Topical Cataract, Inge Ganariela (DSU) Discharge Orders Discharge Orders: Discharge Order (Routine); Ordered 12/08/21 Ordered By: Darrel Knutson DS: Diagnosis Discharge Diagnosis (1) Posterior subcapsular age-related cataract of left eye: Status: Resolved (2) Nuclear sclerotic cataract of left eye: Status: Resolved
--- NOTE | 2021-12-08 15:19 | ROE_ITS ---
Date of service: 12/08/21 Time of Service: 14:19 Operative Note Operative Note DATE OF PROCEDURE: 12/08/21 PRE-OP DIAGNOSIS: Nuclear/posterior subcapsular cataract, left eye POST-OP DIAGNOSIS: same PROCEDURE: Cataract extraction using phacoemulsification with intraocular lens implant, left eye SURGEON: Darrel Knutson ANESTHESIA TYPE: Local By Surgeon and MAC Refer to Anesthesia Record PATHOLOGY: none sent COMPLICATIONS: None Patient was transported to: same day Patient's condition: stable Implants: Ghulam and Ghulam / [employer] Tecnis [id number] Indications: Progressive decreased vision due to cataract, left eye Procedure Description: CATARACT SURGERY OPERATIVE REPORT PREOPERATIVE DIAGNOSIS: 1. Nuclear/posterior subcapsular cataract, left eye POSTOPERATIVE DIAGNOSIS: Same OPERATION: 1. Cataract extraction using phacoemulsification with posterior chamber intraocular lens implant, left eye. IOL: IOL History Faculty Member/Model: Ghulam & Ghulam / PAWEL Tecnis [id number] IOL Power: + 20.5 diopters IOL Serial Number: [id number] Optic Diameter: 6.0 mm Haptic/Overall Diameter: 13.0 mm PHACO INFO: Anil Skiip[employer]urion Vision System with OZil and Active Fluidics Cumulative Dispersed Energy (CDE): 9.56 seconds SURGEON: Darrel Knutson MD, GEOFFREY ANESTHESIA: Monitored A [facility] (MAC), with local sub-tenon's anesthetic infiltration COMPLICATIONS: None SPECIMENS: None INDICATIONS FOR PROCEDURE: The patient is a 76-year-old gentleman with history of diminished visual acuity in both eyes secondary to the development of bilateral nuclear/posterior subcapsular cataract. He has already undergone cataract surgery in the right eye and is doing well postoperatively. He now presents for cataract surgery in the left eye. PROCEDURE: The correct surgical eye was identified and marked as the left eye and the pupil was dilated in the preoperative area using mydriatics and cycloplegics. The dilated pupil size was 7.0 mm. Oral sedation was administered in the form of an Imprimis MKO Melt (midazolam 3mg/ketamine 25mg/ondansetron 2mg). The patient was brought to the operating room where cardiopulmonary monitoring was instituted and surgical time-out was performed, confirming the correct operative eye and IOL power. Topical anesthesia was administered and ophthalmic povidone-iodine 5% was instilled into the conjunctival fornices. Lidocaine gel was applied to the cornea and the karena-ocular area was prepped with Betadine 10% solution and draped in the usual sterile fashion for intraocular surgery, including an aperture drape. A Tegaderm transparent film dressing was cut in half and used to cover the lashes and lid margins. Care was taken to sequester the lashes and lid margins under the Tegaderm dressing. A lid speculum was placed between the lids of the operative eye and the Anil LuxOR Revalia operating microscope was maneuvered into position. Francheska scissors were then used to make a conjunctival buttonhole approximately 6mm posterior to the limbus in the inferonasal quadrant. Blunt dissection was carried out to expose bare sclera, and a blunt-tipped sub-tenon?s anesthesia cannula was introduced and passed posteriorly along the globe where non- preserved plain lidocaine was injected into posterior sub-Tenon?s space. A sideport knife was used to make a paracentesis port superiorly/superiortemporally. Intraocular phenylephrine/lidocaine was injected int the anterior chamber.. The anterior chamber was filled with viscoelastic. A 2.4mm keratome knife was used to construct a 2-plane near-clear corneal tunnel extending 2.0mm into clear cornea temporally. A flap was raised on the anterior capsule and capsulorhexis forceps were used to complete a continuous curvilinear capsulorhexis of 5.5 mm. Balanced salt solution was then used to perform cortical cleaving hydrodissection and nuclear hydrodelineation until the lens could be freely rotated within the capsular bag. The lens nucleus was then disassembled and removed within the capsular bag and iris plane using phacoemulsification. Residual cortical material was removed using the 45-degree angled silicone I/A tip with 0.3mm port. The posterior capsule was carefully polished to remove as much residual lens epithelial cells as safely possible. The capsular bag was then inflated and the anterior chamber deepened with viscoelastic. The lens implant described above was inserted into the capsular bag using the PAWEL [place] Injector. A Kuglen hook was used to dial the IOL into position. Residual viscoelastic was then removed first from posterior to the IOL, then from the anterior chamber using the I/A handpiece. The lens implant was noted to center nicely within the capsular bag. The incisions were stromally hydrated, and the anterior chamber was reformed using BSS. Then 0.5cc of moxifloxacin 1.0mg/ml were injected into the capsular bag and anterior chamber. The incisions were checked with a Weck spear and found to be secure. Several drops of ophthalmic povidone-iodine 5% were then applied to the eye followed by two drops of Imprimis combination prednisolone/moxifloxacin/nepafenac solution. The drapes were removed and a clear plastic protective eye shield was placed ove r the eye. The patient was then returned to Same Day Surgery in stable condition.
--- NOTE | 2021-12-08 15:20 | W.ANESPOSTOP ---
Postoperative Evaluation Date, Time and Location Date Performed: 12/08/21 Time Performed: 15:20 Patient Location: Day Surgery Unit Vital Signs Most Recent Imported Vital Signs: Most Recent Vital Signs Temp Pulse Resp BP Pulse Ox 36.4 C L 53 L 16 177/82 H 100 12/08/21 12:53 12/08/21 12:53 12/08/21 12:53 12/08/21 12:53 12/08/21 12:53 Pain Score Most Recent Pain Score: Most Recent Pain Score Pain Level 0 12/08/21 12:53 Assessment Mental Status: Awake (Alert & Oriented to Patient Baseline) Airway and Respiratory Function: Patent airway with normal (patient baseline) respiratory exam Cardiovascular Function: Hemodynamically Stable Hydration Status: Adequately Hydrated Nausea & Vomiting: No Nausea or Vomiting Pain: Pt. Denies Any Pain Peripheral Nerve Block: Patient did not receive a nerve block
== END 2021-12-08 15:37 | disposition home or self-care (01) ==
PROVIDERS: PCP Registered Nurse; Visit Provider Ophthalmology
PROC: (CPT 66984; principal; 2021-12-08 14:30)
DX: H25.042 Posterior subcapsular polar age-related cataract, left eye (principal); I10 Essential (primary) hypertension; E78.00 Pure hypercholesterolemia, unspecified
CPT/HCPCS: 66984; V2632

== ENCOUNTER 2023-05-27 13:49 | Outpatient (REF) | payer MEDICARE, BC, SELFPAY ==
[2023-05-27 21:14] LABS: Source Nasal/Nares
[2023-05-27 22:12] LABS: COVID-19 PCR Negative (Negative)
== END 2023-05-27 13:50 | disposition home or self-care (01) ==
LOC: LBN 13:49
PROVIDERS: PCP Registered Nurse; Visit Provider Physician Assistant Medical
DX: R09.81 Nasal congestion (principal); Z20.822 Contact with and (suspected) exposure to COVID-19
CPT/HCPCS: 87635

== ENCOUNTER → 2023-05-27 16:30 | Outpatient (CLI) | payer MEDICARE, BC, SELFPAY ==
--- NOTE | 2023-05-27 15:01 | DI.RAD_ITS ---
Exam(s) XR CHEST 2V PA LATERAL EXAM: XR CHEST 2V PA LATERAL CLINICAL HISTORY: [id number] TECHNIQUE: 2D digital imaging was performed. COMPARISON: CR,XR XR CHEST 2V PA LATERAL from 10/21/2019 FINDINGS: HEART: Normal size. Aorta: Not dilated. PULMONARY VASCULATURE: Normal. LUNGS: Clear. PLEURAL SPACE: No pleural effusion or pneumothorax. BONE:Unremarkable for age. IMPRESSION: No acute abnormality. DATA REPOSITORY: RADIATION DOSE DELIVERED:
== END ==
PROVIDERS: PCP Registered Nurse; Visit Provider Physician Assistant Medical
DX: R05.8 Other specified cough (principal)
CPT/HCPCS: 71046

== ENCOUNTER 2023-06-04 21:16 | Outpatient (REF) | payer MEDICARE, BC, SELFPAY ==
[2023-06-04 14:51] LABS: ALT 48 U/L (16-63); AST 33 U/L (15-37); Albumin 3.4 g/dL (3.4-5.0); Alkaline Phosphatase 86 U/L (46-116); Anion Gap 9.8 mmol/L (3-11); BUN 19 mg/dL (7-18); Bilirubin, Total 0.7 mg/dL (0.2-1.0); CO2 27.2 mmol/L (21.0-32.0); CREATININE 1.2 mg/dL (0.70-1.30); Calcium 9.1 mg/dL (8.5-10.1); Calculated LDL 83 mg/dL (<100); Chloride 105 mmol/L (98-107); Cholesterol 161 mg/dL (<200); Estimated GFR 62.67 (mL/min/1.73m2); Glucose 105 mg/dL (74-106); HDL Cholesterol 42 mg/dL (40-60); Potassium 4.3 mmol/L (3.5-5.1); Sodium 142 mmol/L (136-145); TSH 2.52 uIU/mL (0.36-3.74); Triglyceride 182 mg/dL (<150)
[2023-06-04 15:08] LABS: Creatine Kinase 145 U/L (39-308)
--- OUTSIDE RECORDS SUMMARY | 2023-06-04 21:41 | XMS_ITS | CCD ---
Author Name Unknown Address [address] [place] [address] [id number] Organization Unknown Address [address] [place] [address] [id number] Care Team Providers Care Occupational Health Physician Name Role Phone GANGA HAQ Attending Physician [phone] Vital Signs Unknown or Not Available. Allergies Unknown or Not Available. Procedures Unknown or Not Available. History of Immunizations Unknown or Not Available. Problems Unknown or Not Available. Results Unknown or Not Available. Active Medications Unknown or Not Available. Medications Administered During Visit Unknown or Not Available. Encounters Encounter Diagnosis Diagnosis Code Start Date Other abnormalities of gait and mobility [id number] 03/30/2022 Social History Smoking Status Code Start Date End Date Never smoker [id number] Patient Decision Aids Unknown or Not Available. Discharge Instructions You were admitted to [facility] on 03/30/2022 10:04 with a principal diagnosis of Other abnormalities of gait and mobility You were discharged from [facility] on 04/22/2022 12:57 Should you have any questions prior to discharge, please contact a member of your healthcare team. If you have left the hospital and have any questions, please contact your primary care physician. Chief Complaint and Reason For Visit Unknown or Not Available. Function Status Unknown or Not Available. Plan of Care Unknown or Not Available. Referral/Transition of Care Unknown or Not Available.
== END 2023-06-04 21:17 | disposition home or self-care (01) ==
LOC: NCHCN 21:16
PROVIDERS: PCP Registered Nurse; Visit Provider Physician Assistant
DX: E78.5 Hyperlipidemia, unspecified (principal); I10 Essential (primary) hypertension; M79.18 Myalgia, other site
CPT/HCPCS: 80053; 80061; 82550; 84443

== ENCOUNTER → 2023-07-23 00:47 | Outpatient (CLI) | payer MEDICARE, BC, SELFPAY ==
--- NOTE | 2023-07-23 | DI.US_ITS ---
Exam(s) US AAA SCREENING EXAM: US AAA SCREENING CLINICAL HISTORY: AAA SCREENING Z13.6 COMPARISON: No exams were available for comparison FINDINGS: Abdominal Aorta: Proximal: 2.3 cm Mid: 2.4 cm Distal: 1.9 cm Iliacs: Right: 1.3 cm Left: 1 cm IMPRESSION: No evidence of abdominal aortic aneurysm. DATA REPOSITORY:
== END ==
PROVIDERS: PCP Registered Nurse; Visit Provider Physician Assistant
DX: Z13.6 Encounter for screening for cardiovascular disorders (principal)
CPT/HCPCS: 76706